=== PATIENT | male | born 1985 | race Caucasian/White ===

== ENCOUNTER 2017-03-01 00:26 | Emergency (ER) | payer OTHER ==
--- NOTE | 2017-03-01 01:03 | ED ---
Head Injury - HPI Summary HPI Summary: 32M presents with facial injury today. He had some dinner and drinks with friends and tripped and landed on his face. He denies any LOC. He denies any nausea or vomiting. He denies any other injury. He denies any bleeding from his nares. He denies any visual changes. He does not know when last tetanus was. minimal bleeding present. no pain. He is not on blood thinners. He denies any chest pain, abdominal pain, neck pain, upper or lower extremity pain. level 5 cavet - History Of Current Complaint Chief Complaint: EDLacSutureRecheck Stated Complaint: FACE INJURY Time Seen by Provider: 03/01/17 00:45 Pain Intensity: 0 PMH/Surg Hx/FS Hx/Imm Hx Endocrine/Hematology History: Denies: Hx Anticoagulant Therapy Cardiovascular History: Denies: Hx Hypertension Infectious Disease History: No Infectious Disease History: Denies: Traveled Outside the [place] in Last 30 Days - Social History Alcohol Use: None Substance Use Type: Reports: None Smoking Status (MU): Never Smoked Tobacco Review of Systems Negative: Fever Negative: Chest Pain Negative: Shortness Of Breath Positive: Other - facial laceraiton All Other Systems Reviewed And Are Negative: Yes Physical Exam Triage Information Reviewed: Yes Vital Signs On Initial Exam: Initial Vitals Temp Pulse Resp BP Pulse Ox 98 F 80 18 128/74 98 03/01/17 00:42 03/01/17 00:42 03/01/17 00:42 03/01/17 00:42 03/01/17 00:42 Vital Signs Reviewed: Yes Completion Of Physical Exam Limited Due To: Level 5 Appearance: Positive: Well-Appearing Skin: Positive: Warm, Dry, Other - 6cm semicircular lac, abrasions to nose Head/Face: Positive: Normal Head/Face Inspection, Other - no step off, racoon eyes, sharp sign Eyes: Positive: Normal, EOMI, ROSITA, Conjunctiva Clear ENT: Positive: Normal ENT inspection, Pharynx normal, TMs normal Respiratory/Lung Sounds: Positive: Clear to Auscultation, Breath Sounds Present Cardiovascular: Positive: Normal, RRR Abdomen Description: Positive: Nontender, Soft Bowel Sounds: Positive: Present Neurological: Positive: Sensory/Motor Intact, CN Intact II-III, Other - not orinated to place - [place] Coma Scale Coma Scale Total: 15 Procedures - Laceration/Wound Repair 1 Location: face Description: Irregular Anesthesia: Local, 1.0% Length, Depth and Shape: 6cm superficial with right side 1/4cm wide Irrigated w/ Saline (ccs): 150 Closure: Skin Adhesive, Single Layer Number of Sutures: 5 - on right side of laceration Layer Closure?: No Sterile Dressing Applied?: No Diagnostics - Vital Signs Vital Signs Temp Pulse Resp BP Pulse Ox 03/01/17 00:42 98 F 80 18 128/74 98 - Laboratory Lab Statement: Any lab studies that have been ordered have been reviewed, and results considered in the medical decision making process. - CT brain CT Interpretation: No Acute Changes CT Interpretation Completed By: Radiologist maxillaryfacial CT Interpretation: Positive (See Comments) - nasal bone fracture CT Interpretation Completed By: Radiologist Head Injury Course/Dx Course Of Treatment: 32M presents with facial injury today. He had some dinner and drinks with friends and tripped and landed on his face. He denies any LOC. He denies any nausea or vomiting. He denies any other injury. He denies any bleeding from his nares. He denies any visual changes. He does not know when last tetanus was. minimal bleeding present. no pain. He is not on blood thinners. He denies any chest pain, abdominal pain, neck pain, upper or lower extremity pain. history limited do to ETOH use. will get CT do to this. normal neuro exam but does not know location. has 6cm semicircular laceration of foreahead. placed 5 sutures on right side of laceration as was deep and glued other side. CT normal. maxillaryfacial shows small nasal fracture. will give ENT referral although is not likely to be necessary. patient understand and agrees with plan. - Diagnoses Differential Diagnosis/HQI/PQRI: Concussion Without LOC, Contusion, Intracranial Bleed, Laceration Provider Diagnoses: Head injury, Facial laceration, Nasal fracture Discharge - Discharge Plan Condition: Good Disposition: HOME Patient Education Materials: Care For Your Stitches (ED), Nasal Fracture (ED), Head Injury (ED) Referrals: Faustina Crystal NP [Primary Care Provider] - Rancho Del Castillo MD [Medical Doctor] - Additional Instructions: Keep area clean and dry for 24 hours Take Tylenol or ibuprofen for pain every 6 hours Return to ED or primary for suture removal in 5 days Follow up with primary about head injury within 5 days Glue will fall off on own Can follow up with ENT about nasal fracture if would like Return to ED if develop signs of infection such as fever, spreading redness, or pus formation
[2017-03-01] MEDS ORDERED: Tetan/Diph/Pertus SYR(Tdap)* 0.5 ML SYR(BOOSTRIX) use SYR IM ONE (01:08)
[2017-03-01 05:12] VITALS: BP 132/68
--- NOTE | 2017-03-01 10:11 | RAD ---
indication: Laceration of forehead after a fall. + EtOH COMPARISON: None A CT scan of the brain and and maxillofacial bones was performed without intravenous contrast enhancement. Contiguous axial sections were obtained from the lower cervical spine through the cranial vertex. BRAIN: The ventricles, cisterns and sulci are within normal limits. No significant focal abnormality or mass effect is seen. The restrepo-white differentiation is adequately maintained. There is no evidence for intracranial hemorrhage. No significant bony abnormality is present. The mastoid air cells are appropriately aerated. The visualized paranasal sinuses are clear. FACIAL BONES: Defect of the left of midline subcutaneous tissue overlying the frontal bone is consistent with for head laceration. Bones: There is slight deformity and posterior dislocation of the tip of the nasal bone (sagittal image 30). The orbital rim is intact. The zygomatic arch is intact. The pterygoid plates are intact Orbits: The globes are round. The optic nerves are symmetric. The extraocular musculature is normal. There is no post septal or intraconal inflammatory change. There is no retrobulbar hematoma. Paranasal Sinuses: The paranasal sinuses are clear. IMPRESSION: 1. No calvarial fracture or acute intracranial hemorrhage. 2. Slightly deformed tip of the nasal bone fracture.
== END 2017-03-01 02:45 | disposition home or self-care (01) ==
LOC: ED 00:26
DX: S01.81XA Laceration without foreign body of other part of head, initial encounter (principal); S02.2XXA Fracture of nasal bones, initial encounter for closed fracture; S09.90XA Unspecified injury of head, initial encounter; W01.0XXA Fall on same level from slipping, tripping and stumbling without subsequent striking against object, initial encounter; Y93.9 Activity, unspecified; Y92.9 Unspecified place or not applicable
CPT/HCPCS: 12013; 70450; 70486; 96372; 99282